=== PATIENT | male | born 1955 | race Caucasian/White ===

== ENCOUNTER 2020-11-08 10:40 | Day surgery (SDC) | payer OTHER ==
[2020-11-05 09:28] LABS: MICROSCOPIC INDICATED
[2020-11-05 09:35] LABS: INTERNATIONAL NORMALIZED RATIO 1.04 (0.93-1.1); PROTHROMBIN TIME 11.1 Seconds (9.6-11.5)
[~2020-11-08] VITALS: Ht 182.9 cm; Wt 112.8 kg
[~2020-11-08 10:40] MED LIST: ALLO300T PO; CAND1TAB34 PO; CHOL10003 PO; CYAN1TAB20 PO; ERGO500017 PO; ESOM40CA PO; FLEC50TA25 PO; MAGNESIUM PO; METO25TA35 PO; MILK THISTLE PO; OMEG-14 PO; RIVA20TA PO; USTE90DI IM
[2020-11-08] MEDS ORDERED: GEMCITABINE HCL 1,000 MG in SODIUM CHLORIDE 0.9% 23.7 ML BLADIN ONE ×2 (11:00→13:00)
[2020-11-08 11:12] VITALS: BP 138/88
[2020-11-08] MEDS ORDERED: LACTATED RINGERS 1,000 ML IV SCH (11:30)
[2020-11-08] MEDS ORDERED: CHLORHEXIDINE 15 ML UDC MM ONE (11:30)
[2020-11-08] MEDS ORDERED: FENTANYL PF 250 MCG/5ML ONE (12:38)
[2020-11-08] MEDS ORDERED: DEXAMETHASONE 4 MG/ML, 1ML ONE (13:49)
[2020-11-08] MEDS ORDERED: PHENYLEPHRINE 10 MG/ML ONE (13:49)
[2020-11-08] MEDS ORDERED: ONDANSETRON 2MG/ML, 2ML ONE (13:49)
[2020-11-08] MEDS ORDERED: ROCURONIUM 10 MG/ML,10ML ONE (13:49)
[2020-11-08] MEDS ORDERED: PROPOFOL 10 MG/ML, 20ML ONE (13:49)
[2020-11-08] MEDS ORDERED: CEFAZOLIN 1,000 MG ONE (13:49)
[2020-11-08] MEDS ORDERED: SUGAMMADEX 200 MG/2 ML IVPush ONE (13:49)
[2020-11-08] MEDS ORDERED: ACETAMINOPHEN 325 MG TABLET PO PRN (14:00)
[2020-11-08] MEDS ORDERED: METHOCARBAMOL 1,000 MG in DEXTROSE 5% 100 ML IV PRN (14:00)
[2020-11-08] MEDS ORDERED: FENTANYL PF 100 MCG/2ML IV PRN (14:00)
[2020-11-08] MEDS ORDERED: DIPHENHYDRAMINE 50 MG/ML, 1ML IVPush PRN (14:00)
[2020-11-08] MEDS ORDERED: HYDROmorphone 1 MG/ML, 1ML INJ IVPush PRN (14:00)
[2020-11-08] MEDS ORDERED: HALOPERIDOL 5 MG/ML IV PRN (14:00)
[2020-11-08] MEDS ORDERED: KETOROLAC 30 MG/1 ML IV PRN (14:00)
[2020-11-08] MEDS ORDERED: PROMETHAZINE 25 MG/ML, 1ML IVPush PRN (14:00)
[2020-11-08] MEDS ORDERED: LABETALOL 5MG/ML, 20ML IV PRN (14:00)
[2020-11-08] MEDS ORDERED: EPHEDRINE 50 MG/ML, 1ML IVPush PRN (14:00)
[2020-11-08] MEDS ORDERED: METOPROLOL 1 MG/ML, 5ML IV PRN (14:00)
[2020-11-08] MEDS ORDERED: hydrALAzine 20 MG/ML, 1ML IV PRN (14:00)
[2020-11-08] MEDS ORDERED: OXYcodone 5 MG/5 ML ORAL.SOL UDC PO PRN (14:00)
[2020-11-08] MEDS ORDERED: METOCLOPRAMIDE 5 MG/ML, 2ML IVPush PRN (14:00)
[2020-11-08] MEDS ORDERED: ONDANSETRON 2MG/ML, 2ML IVPush PRN (14:00)
== END 2020-11-08 17:20 | disposition home or self-care (01) ==
LOC: OUT 10:40
PROVIDERS: ATTEND Urology
DX: C67.2 Malignant neoplasm of lateral wall of bladder (principal); C61 Malignant neoplasm of prostate; I10 Essential (primary) hypertension; I48.91 Unspecified atrial fibrillation; E66.9 Obesity, unspecified; Z20.822 Contact with and (suspected) exposure to COVID-19; Z79.01 Long term (current) use of anticoagulants; Z79.82 Long term (current) use of aspirin; Z79.899 Other long term (current) drug therapy; Z87.891 Personal history of nicotine dependence
CPT/HCPCS: 36415; 51720; 52235; 81001; 85610; 87086; 88305; 88307; 93005; J0690; J1100; J2370; J2405; J2704; J3010; J7120; J9201; U0003

== ENCOUNTER 2021-03-18 15:12 | Outpatient (CLI) | payer OTHER ==
[2021-03-18] MEDS ORDERED: ATOR10TA PO (16:10)
[2021-03-18 16:22] LABS: BASOPHILS % (AUTO) 1 % (0-1); EOSINOPHILS % (AUTO) 1 % (1-7); LYMPHOCYTES % (AUTO) 20 % (22-44); MEAN CORPUSCULAR HEMOGLOBIN 31.7 pg (27.5-34.5); MEAN CORPUSCULAR HGB CONC 33.4 g/dL (33.2-36.2); MEAN PLATELET VOLUME 6.6 fL (7.4-10.4); MONOCYTES % (AUTO) 10 % (2-9); NEUTROPHILS % (AUTO) 69 % (42-75); PLATELET COUNT 241 x10^3/uL (130-400); RED BLOOD COUNT 4.16 x10^6/uL (4.38-5.82)
[2021-03-18 16:30] LABS: ALANINE AMINOTRANSFERASE 48 U/L (12-78); ALBUMIN 3.4 g/dL (3.4-5.0); ANION GAP 7 mmol/L (5-15); CHLORIDE 104 mmol/L (98-107)
[2021-03-18 16:33] LABS: ALKALINE PHOSPHATASE 73 U/L (45-117); BILIRUBIN,TOTAL 0.6 mg/dL (0.2-1.0); CREATININE 0.99 mg/dL (0.7-1.3)
== END 2021-03-18 23:59 | disposition home or self-care (01) ==
LOC: STAR 15:12
PROVIDERS: ATTEND Colon & Rectal Surgery
DX: Z01.818 Encounter for other preprocedural examination (principal); I44.0 Atrioventricular block, first degree; R94.31 Abnormal electrocardiogram [ECG] [EKG]; Z20.822 Contact with and (suspected) exposure to COVID-19
CPT/HCPCS: 36415; 80053; 85025; 93005; U0003; U0005

== ENCOUNTER 2021-03-24 09:17 | Inpatient (IN) | payer OTHER ==
[~2021-03-24] VITALS: Ht 182.9 cm; Wt 105.4 kg
[~2021-03-24 09:17] MED LIST changes: +ATOR10TA PO
[2021-03-24] MEDS ORDERED: CHLORHEXIDINE 15 ML UDC ONE (09:50)
[2021-03-24] MEDS ORDERED: CHLORHEXIDINE 15 ML UDC PO ONE (10:00)
[2021-03-24] MEDS ORDERED: LACTATED RINGERS 1,000 ML IV SCH (10:00)
[2021-03-24] MEDS ORDERED: FENTANYL PF 250 MCG/5ML ONE (10:01)
[2021-03-24] MEDS ORDERED: CEFOTETAN 2 GM ONE (10:02)
[2021-03-24] MEDS ORDERED: MIDAZOLAM 1 MG/ML, 2ML ONE (10:02)
[2021-03-24] MEDS ORDERED: BUPIVACAINE/PF 0.25% ONE (10:04)
[2021-03-24] MEDS ORDERED: ONDANSETRON 2MG/ML, 2ML IVPush PRN (10:30)
[2021-03-24] MEDS ORDERED: LABETALOL 5MG/ML, 20ML IV PRN (10:30)
[2021-03-24] MEDS ORDERED: MEPERIDINE/PF 25MG/0.5ML IVPush PRN (10:30)
[2021-03-24] MEDS ORDERED: morphine SULFATE 10 MG/ML, 1ML IVPush PRN (10:30)
[2021-03-24] MEDS ORDERED: HYDROmorphone 1 MG/ML, 1ML INJ IVPush PRN ×2 (10:30→15:00)
[2021-03-24] MEDS ORDERED: FENTANYL PF 100 MCG/2ML IV PRN (10:30)
[2021-03-24] MEDS ORDERED: hydrALAzine 20 MG/ML, 1ML IV PRN (10:30)
[2021-03-24] MEDS ORDERED: BUPIVACAINE/PF 0.5% ONE (10:32)
[2021-03-24] MEDS ORDERED: EPINEPHRINE 1 MG/ML, 1ML ONE (10:32)
[2021-03-24] MEDS ORDERED: PHENYLEPHRINE 10 MG/ML ONE (11:03)
[2021-03-24] MEDS ORDERED: SUGAMMADEX 200 MG/2 ML IVPush ONE (11:03)
[2021-03-24] MEDS ORDERED: PROPOFOL 10 MG/ML, 20ML ONE (11:03)
[2021-03-24] MEDS ORDERED: NEOSTIGMINE 1 MG/ML, 10ML ONE (11:03)
[2021-03-24] MEDS ORDERED: GLYCOPYRROLATE 0.2MG/1ML, 5ML ONE (11:03)
[2021-03-24] MEDS ORDERED: VASOPRESSIN 20 UNIT/ML, 1ML ONE (11:29)
[2021-03-24] MEDS ORDERED: ROCURONIUM 10MG/ML,5ML ONE (11:44)
[2021-03-24] MEDS ORDERED: INDOCYANINE GREEN 25 MG VIAL ONE (11:58)
[2021-03-24] MEDS ORDERED: THIAMINE 100 MG IV SCH (12:00)
[2021-03-24] MEDS ORDERED: MULTITRACE IV SCH (12:00)
[2021-03-24] MEDS ORDERED: THIAMINE 100 MG, FOLIC ACID 1 MG, MVI ADULT 10 ML in SODIUM CHLORIDE 0.9% 1,000 ML IV SCH (12:00)
[2021-03-24] MEDS ORDERED: [UNRECOGNIZED DRUG - OTHER] IV SCH (12:00)
[2021-03-24] MEDS ORDERED: FOLIC ACID 1 MG IV SCH (12:00)
[2021-03-24] MEDS ORDERED: THIAMINE IV SCH (12:00)
[2021-03-24] MEDS ORDERED: CHROMIUM IV SCH (12:00)
[2021-03-24] MEDS ORDERED: FOLIC ACID IV SCH (12:00)
[2021-03-24] MEDS ORDERED: SELENIUM IV SCH (12:00)
[2021-03-24] MEDS ORDERED: [UNRECOGNIZED DRUG - OTHER] IV SCH (12:00)
[2021-03-24] MEDS ORDERED: MANGANESE IV SCH (12:00)
[2021-03-24] MEDS ORDERED: ZINC IV SCH (12:00)
[2021-03-24] MEDS ORDERED: COPPER IV SCH (12:00)
[2021-03-24] MEDS ORDERED: DIPHENHYDRAMINE 25 MG CAPSULE PO PRN (15:00)
[2021-03-24] MEDS ORDERED: DIPHENHYDRAMINE 50 MG/ML, 1ML IVPush PRN (15:00)
[2021-03-24] MEDS ORDERED: CALCIUM CARBONATE 500 MG TAB.CHEW PO PRN (15:00)
[2021-03-24] MEDS ORDERED: LORazepam 1MG TABLET PO PRN (15:00)
[2021-03-24] MEDS ORDERED: SCOPOLAMINE PATCH, 1.5MG PATCH.TD72 TD PRN (15:00)
[2021-03-24] MEDS ORDERED: ONDANSETRON 2MG/ML, 2ML IV PRN (15:00)
[2021-03-24] MEDS ORDERED: HALOPERIDOL 5 MG/ML IVPush PRN (15:00)
[2021-03-24] MEDS ORDERED: OXYcodone IR 5MG TABLET PO PRN (15:00)
[2021-03-24] MEDS ORDERED: DEXAMETHASONE 4 MG/ML, 1ML IVPush PRN (15:00)
[2021-03-24] MEDS ORDERED: TRAZODONE 50MG TABLET PO PRN (15:00)
[2021-03-24] MEDS: KETOROLAC 30 MG/1 ML IVPush SCH (18:36)
[2021-03-24 19:09] VITALS: BP 127/77
[2021-03-24] MEDS: ACETAMINOPHEN 500 MG TABLET PO SCH (20:14)
[2021-03-24] MEDS: ATORVASTATIN 10 MG TABLET PO SCH (21:51)
[2021-03-25 00:16] VITALS: BP 123/81
[2021-03-25] MEDS: KETOROLAC 30 MG/1 ML IVPush SCH ×2 (00:49→06:19)
[2021-03-25] MEDS: ACETAMINOPHEN 500 MG TABLET PO SCH ×4 (02:26→22:29)
[2021-03-25 03:26] LABS: BASOPHILS % (AUTO) 0 % (0-1); EOSINOPHILS % (AUTO) 3 % (1-7); LYMPHOCYTES % (AUTO) 15 % (22-44); MEAN CORPUSCULAR HEMOGLOBIN 31.9 pg (27.5-34.5); MEAN CORPUSCULAR HGB CONC 33.5 g/dL (33.2-36.2); MEAN PLATELET VOLUME 6.9 fL (7.4-10.4); MONOCYTES % (AUTO) 12 % (2-9); NEUTROPHILS % (AUTO) 70 % (42-75); PLATELET COUNT 209 x10^3/uL (130-400); RED CELL DISTRIBUTION WIDTH 15.2 % (9.4-14.8)
[2021-03-25 03:36] LABS: ANION GAP 7 mmol/L (5-15); CALCIUM 8.5 mg/dL (8.5-10.1); CHLORIDE 98 mmol/L (98-107)
[2021-03-25 03:56] VITALS: BP 116/76
[2021-03-25] MEDS: PANTOPRAZOLE 40MG TABLET PO SCH (06:19)
[2021-03-25 08:02] VITALS: BP 129/73
[2021-03-25] MEDS: HYDROCHLOROTHIAZIDE 12.5 MG CAPSULE PO SCH (08:06)
[2021-03-25] MEDS: LOSARTAN 100 MG TAB PO SCH (08:06)
[2021-03-25] MEDS: METOPROLOL TARTRATE 25 MG TAB PO SCH (08:07)
[2021-03-25] MEDS: ALLOPURINOL 300 MG TABLET PO SCH (08:07)
[2021-03-25] MEDS: FLECAINIDE 50MG TABLET PO SCH (08:08)
[2021-03-25] MEDS ORDERED: SODIUM CHLORIDE 0.9% 1,000 ML IV SCH (11:00)
[2021-03-25] MEDS ORDERED: MAGNESIUM SULFATE PMX 2GM/50ML 50 ML IVPB ONE (11:00)
[2021-03-25 14:14] VITALS: BP 97/62
[2021-03-25 19:47] VITALS: BP 117/72
[2021-03-25] MEDS: ATORVASTATIN 10 MG TABLET PO SCH (20:53)
[2021-03-26 01:41] VITALS: BP 132/76
[2021-03-26 03:05] LABS: BASOPHILS % (AUTO) 1 % (0-1); EOSINOPHILS % (AUTO) 3 % (1-7); LYMPHOCYTES % (AUTO) 18 % (22-44); MEAN CORPUSCULAR HEMOGLOBIN 32.1 pg (27.5-34.5); MEAN CORPUSCULAR HGB CONC 33.7 g/dL (33.2-36.2); MEAN PLATELET VOLUME 6.9 fL (7.4-10.4); MONOCYTES % (AUTO) 12 % (2-9); NEUTROPHILS % (AUTO) 67 % (42-75); PLATELET COUNT 194 x10^3/uL (130-400); RED BLOOD COUNT 3.38 x10^6/uL (4.38-5.82)
[2021-03-26 03:07] LABS: ANION GAP 5 mmol/L (5-15); CALCIUM 8.5 mg/dL (8.5-10.1); CHLORIDE 105 mmol/L (98-107); CREATININE 0.95 mg/dL (0.7-1.3)
[2021-03-26] MEDS: ACETAMINOPHEN 500 MG TABLET PO SCH ×2 (04:47→10:21)
[2021-03-26] MEDS: PANTOPRAZOLE 40MG TABLET PO SCH (06:26)
[2021-03-26 07:10] VITALS: BP 112/60
[2021-03-26] MEDS ORDERED: OXYC-302 PO (08:09)
[2021-03-26] MEDS ORDERED: SODIUM CHLORIDE FLUSH 3ML SYRINGE IVF SCH (09:00)
[2021-03-26] MEDS: HYDROCHLOROTHIAZIDE 12.5 MG CAPSULE PO SCH (09:12)
[2021-03-26] MEDS: METOPROLOL TARTRATE 25 MG TAB PO SCH (09:12)
[2021-03-26] MEDS: ALLOPURINOL 300 MG TABLET PO SCH (09:12)
[2021-03-26] MEDS: FLECAINIDE 50MG TABLET PO SCH (09:12)
[2021-03-26] MEDS: LOSARTAN 100 MG TAB PO SCH (09:12)
[2021-03-26 10:07] VITALS: BP 99/64
== END 2021-03-26 10:55 | disposition home or self-care (01) | DRG 331 ==
LOC: ORIP 09:17 → 4NE 14:37 → DCLOUNGE 03-26 10:43
PROVIDERS: ADMIT Colon & Rectal Surgery; ATTEND Colon & Rectal Surgery
PROC: 8E0W4CZ Robotic Assisted Procedure of Trunk Region, Percutaneous Endoscopic Approach (ICD-10-PCS; 2021-03-24)
PROC: 0DBF4ZZ Excision of Right Large Intestine, Percutaneous Endoscopic Approach (ICD-10-PCS; principal; 2021-03-24 11:00)
DX: K63.5 Polyp of colon (principal)
CPT/HCPCS: 36415; S0020; 80048; 83735; 85025; 86850; 86900; 88307; G0378; J0171; J1885; J2250; J2704; J2710; J3010; J2370; J3475; J7030; J7120